=== PATIENT | female | born 1985 | race Two or more races ===

== ENCOUNTER 2024-09-27 22:05 | Emergency (ER) | payer MEDICARE, MEDICAID, SELFPAY ==
[2024-09-27 22:06] VITALS: BMI 35.3
[2024-09-27 22:07] VITALS: BP 113/81; PULSE 100; RESP 19; TEMP 36.7; O2SAT 96
[2024-09-27 22:35] VITALS: PULSE 92; RESP 16; O2SAT 96
--- NOTE | 2024-09-27 22:57 | EDNOTE_ITS ---
ED Psych RME/HPI General Chief Complaint: Suicidal Stated Complaint: MENTAL EVAL Time Seen by Provider: 09/27/24 23:00 Arrival date/time: 09/27/24 22:05 RME / HPI RME / HPI Narrative: This section includes all my notes and documentations, including HPI, PE, and ED course. Roly Barfield MD HPI: 39 y/o female with Hx of PTSD, Schizophrenia, Depression, and Anxiety presents to ED BIBA from [facility] c/o hearing voices that are telling her to kill herself x 2 days. She also complains of pain to her forehead from banging her head after hearing the voices yesterday. Patient called Crisis Hotline which then contacted EMS. Per EMS, patient's plan was to take razors and cut her wrists and throat, which she admits to attempting in the past. Patient was placed on a hold by Crisis after an in-person psych evaluation at the [facility]. Denies visual hallucinations or homicidal ideation. No other complaints. ROS: All negative except as documented in HPI. Physical Exam: General:? Alert and oriented.? Eyes:? Conjunctivae and lids clear.? EOMI.? PERRL. ENT:? No nasal congestion.? Neck:? Supple.? Heart:? RRR.? Lungs:? No respiratory distress.? Good air movement.? No rhonchi, wheezing, rales.?? Abdomen:? Soft and nontender.? Skin:? Warm and dry.?? Neuro:? Alert and oriented X 3.? Cranial Nerves II-XII grossly intact.? No peripheral motor deficits. Musculoskeletal:? All major joints and bones are not tender with no limited ROM.? I reviewed EMS and [facility] notes. I reviewed all diagnostic test results: My review of the Head CT report is NAD. My interpretation of the shoulder x-ray is no acute fracture. Blood tests unremarkable. UA showed positive leukocyte Estrace, 28 RBC, 32 WBC. At this point, diagnoses include: Suicidal ideation, auditory hallucinations, and UTI. Treatment here included: Macrobid Patient remained stable. At 6 AM on 09/28/2024, the care of the patient was transferred to Dr. Rodriguez. Roly Barfield MD Related Data Allergies Allergy/AdvReac Type Severity Reaction Status Date / Time No Known Allergies Allergy Verified 09/27/24 22:39 Review of Systems Review of Systems Systems Reviewed: All systems reviewed, normal except as documented Past Medical History Past Medical History PSYCHO/SOCIAL: Positive Psychiatric Problems, Schizophrenia, Depression, Anxiety and Post Traumatic Stress Disorder Social History SMOKING STATUS: Never smoker ED Exam Narrative Physical exam: Refer to HPI above Course Quality Measures none Orders Category Date Time Status CT head/brain wo con Stat Exams 09/27/24 23:07 Completed XR shoulder LT min 2V Stat Exams 09/28/24 00:12 Taken Acetaminophen Stat Lab 09/27/24 23:40 Completed Alcohol, Blood Medical Stat Lab 09/27/24 23:40 Completed CBC Stat Lab 09/27/24 23:40 Completed CMP [Comprehensive Metabolic Panel] Stat Lab 09/27/24 23:40 Completed Drug Screen,Urine Stat Lab 09/28/24 00:17 Completed Free T4 (Free Thyroxine) Stat Lab 09/27/24 23:40 Completed HCG Qualitative,Urine Stat Lab 09/28/24 00:17 Completed HCG,Qualitative Serum Stat Lab 09/27/24 23:40 Completed Magnesium Stat Lab 09/27/24 23:40 Completed Salicylate Stat Lab 09/27/24 23:40 Completed TSH [Thyroid Stimulating Hormone] Stat Lab 09/27/24 23:40 Completed UA, C/S IF [Urinalysis, C/S if Indicated] Stat Lab 09/28/24 00:17 Completed Urine Culture Stat Lab 09/28/24 00:17 Received Nitrofurantoin Macro [Macrobid] Med 09/28/24 01:11 Discontinued 100 mg PO X1 ONE Vital Signs Vital signs: Vital Signs Temperature 98.1 F 09/27/24 22:07 Pulse Rate 100 09/27/24 22:07 Respiratory Rate 19 09/27/24 22:07 Blood Pressure 113/81 09/27/24 22:07 Pulse Oximetry (%) 96 09/27/24 22:07 Oxygen Delivery Method Room Air 09/27/24 22:07 Psych MDM Narrative MDM Narrative:: Scribe Attestation: I, Peggy Gauthier, am scribing for and in the presence of Dr. Barfield. Provider Notation: Although this document has been carefully reviewed, there may still be some phonetic and other typographical errors.? These errors are purely grammatical due to imperfections in the software program and should not be construed in any way to? compromise the substance of the patient's medical care during this visit. 39 y/o female with Hx of PTSD, Schizophrenia, Depression, and Anxiety presents to ED JEROMYA from [facility] c/o hearing voices that are telling her to kill herself x 2 days. She also complains of pain to her forehead from banging her head after hearing the voices. Patient called Crisis Hotline which then contacted EMS. Per EMS, patient's plan was to take razors and cut her wrists, which she admits to attempting in the past. Patient was placed on a hold by Crisis after an in-person psych evaluation at the [facility]. Denies visual hallucinations or homicidal ideation. No other complaints. Patient data External records reviewed:: [facility] previous records (No prior ED records available for review.), EMS form and Custodial records Clinical information provided by:: patient and EMS Social determinants that could affect healthcare access:: mental health (Schizophrenia, Deppresion, Anxiety, PTSD) Patient has the following chronic illnesses:: Schizophrenia, Depression, Anxiety and Post Traumatic Stress Disorder How is presenting disease/condition affected by chronic disease/condition?: e xacerbated by Evaluation data The following diagnostics were reviewed and interpreted by me:: lab results and radiology exam(s) Lab and/or radiology exams considered but not ordered:: None Interpretation Summary: I reviewed all diagnostic test results: My review of the Head CT report is NAD. My interpretation of the shoulder x-ray is no acute fracture. Blood tests unremarkable. UA showed positive leukocyte Estrace, 28 RBC, 32 WBC. Medications / Prescriptions Medications or Prescriptions considered but not ordered:: None Medication administrations:: Medication Administration History Discontinued Medications Nitrofurantoin Macrocrystals (Nitrofurantoin Macro 100 Mg Capsule) 100 mg PO X1 ONE Stop: 09/28/24 01:12 Macrobid Consultations Consultation(s) initiated? (list below): No Diagnosis Psych Differential Diagnosis: acute psychosis, chronic schizophrenia, suicidal ideation, bipolar disorder, depression, drug-induced psychotic disorder and acute anxiety Most likely diagnosis given after review of the tests above:: Suicidal ideation, auditory hallucinations, and UTI. Admission Indicated Admission indicated?: not indicated Explain why admission is indicated or not indicated:: No psychiatric service available at this facility. Admission Request Was there a request for admission?: No Disposition Plan Disposition Plan: other (specify) (Signed out to Dr. Duval at 6 AM.) Discharge Plan Problem List Clinical Impression: Suicidal ideation, UTI (urinary tract infection), Auditory hallucinations Patient/Caregiver Discharge Instructions Print Language: Mongolian
--- NOTE | 2024-09-27 23:07 | XR_ITS ---
Examination: CT brain head without contrast. 2-D sagittal coronal reconstructions Date and time of exam:October 07, 2024 2548 hours CTDI: vol (mGy):47 DLP: (mGycm):878 INDICATIONS: Altered mental status today Technique: Multiple CT axial sections of the brain have been obtained, 5 mm slice thickness. Contrast has not been administered. 2-D sagittal, coronal reconstructions have been obtained Low dose protocols were performed. One or more of the following dose reduction techniques were used; automated exposure control, adjustment of the mA and/or KV according to patient size, use of iterative reconstruction technique. Findings: No significant ventricular enlargement. Intra-axial or extra-axial hemorrhage density is not seen. No mass effect or midline shift Basal cisterns are not remarkable. Fourth ventricle is midline. Cranial vault intact. Impression: Negative for acute hemorrhage, mass effect or midline shift Advise clinical correlation and follow up accordingly
[2024-09-28] VITALS (7 sets, daily range): BP systolic 98–120; BP diastolic 63–81; PULSE 99–109; RESP 16–18; TEMP 36.6–37.1; O2SAT 95–99
[2024-09-28 00:12] LABS: Basophils # (Auto) 0.1 Thou/mm3 (0.0-0.2); Basophils % (Auto) 1 % (0-2.5); Eosinophils # (Auto) 0.2 Thou/mm3 (0.0-0.5); Eosinophils % (Auto) 3 % (0-10); Hematocrit 33.2 % (36.0-46.0); Hemoglobin 11.2 g/dL (12.0-16.0); Immature Granulocytes % (Auto) 1 % (0-0); Immature Granulocytes Auto 0.03 Thou/mm3 (0.00-0.00); Lymphocytes # (Auto) 3.3 Thou/mm3 (1.0-4.8); Lymphocytes % (Auto) 52 % (10-50); Mean Corpuscular HGB Conc 33.7 g/dl (31.0-37.0); Mean Corpuscular Hemoglobin 28.9 pg (25.0-35.0); Mean Corpuscular Volume 86 fL (80-100); Monocytes # (Auto) 0.4 Thou/mm3 (0.0-0.8); Monocytes % (Auto) 6 % (0-12); Neutrophils # (Auto) 2.5 Thou/mm3 (1.8-7.7); Neutrophils % (Auto) 38 % (37-80); Nucleated Red Blood Cell % 0 /100 WBC (0); Platelet Count 196 Thou/mm3 (140-440); RDW Standard Deviation 42.6 fL (36.4-46.3); Red Blood Count 3.88 Miln/mm3 (4.00-5.20); White Blood Count 6.5 Thou/mm3 (3.6-11.0)
--- NOTE | 2024-09-28 00:12 | XR_ITS ---
Examination: Shoulder,left, 3 views Technique: Shoulder AP internal rotation, AP external rotation, Y view shoulder, 3 views Exam date and time :September 28, 2024 0022 hours INDICATIONS: Left shoulder pain 3 months. FINDINGS: Moderate narrowing glenohumeral joint No shoulder fracture or dislocation IMPRESSION: Moderate narrowing glenohumeral joint
[2024-09-28 00:36] LABS: Collection Type, Urine Clean Catch
[2024-09-28 00:40] LABS: HCG Qualitative,Urine Negative
[2024-09-28 00:42] LABS: Bilirubin,Urine Negative (Negative); Blood,Urine 3+ (Negative); Calcium Oxalate Crystals,Urine 2+; Clarity,Urine Turbid (Clear/Hazy); Color,Urine Amber (Lt Yel-Yel); Culture Indicated,Urine Yes; Glucose, Urine 2+ (Negative); Ketones,Urine 2+ (Negative); Leukocyte Esterase,Urine Positive (Negative); Nitrite,Urine Negative (Negative); Protein,Urine 2+ (Neg - Trace); RBC,Urine 28 /hpf (0-3); Specific Gravity,Urine 1.037 (1.001-1.035); Squamous Epithelial Cell,Urine 6 /hpf (0-5); WBC,Urine 32 /hpf (0-5)
[2024-09-28 00:52] LABS: Acetaminophen < 2.0 mcg/mL (10.0-20.0); Alanine Aminotransferase 20 U/L (10-49); Albumin, Serum 4.6 gm/dL (3.5-5.0); Albumin/Globulin Ratio 2.4 (1.2-2.2); Alcohol, Blood Medical < 3.0 mg/dL (0-10.0); Alkaline Phosphatase 55 U/L (46-116); Anion Gap 14 (7-16); BUN/Creatinine Ratio 13 Ratio (12-20); Bilirubin,Total 0.2 mg/dL (0.3-1.2); Blood Urea Nitrogen 8 mg/dL (9-23); Calcium 9.7 mg/dL (8.3-10.6); Calcium (Corrected) 9.7 mg/dL (8.5-10.1); Carbon Dioxide 20.3 mMol/L (20.0-31.0); Chloride 103 mMol/L (98-107); Creatinine (Component) 0.6 mg/dL (0.6-1.3); Estimated Creatinine Clearance 118.3 mL/min (>60); Globulin 1.9 gm/dL (2.3-3.5); Glucose 213 mg/dL (74-106); Magnesium 1.7 mg/dL (1.6-2.6); Osmolality,Calculated 278 (275-295); Potassium 4.2 mMol/L (3.4-5.1); Salicylate < 3.0 mg/dL; Sodium 137 mMol/L (136-145); Thyroid Stimulating Hormone 2.53 uIU/mL (0.55-4.78); Total Protein 6.5 gm/dL (5.7-8.2); eGFR > 60 See Note
[2024-09-28 00:57] LABS: HCG,Qualitative Serum Negative
[2024-09-28 02:30] LABS: Amphetamine/Methamp Scrn,U Negative (Negative); Barbiturate Screen,Urine Negative (Negative); Benzodiazepines Screen,Urine Positive (Negative); Benzoylecgonine Screen, Ur Negative (Negative); Fentanyl Screen,Urine Negative (Negative); Opiate Screen,Urine Negative (Negative); THC Screen,Urine Negative (Negative)
[2024-09-28] MEDS: NITROFURANTOIN MACRO 100 MG CAPSULE PO (06:02)
--- NOTE | 2024-09-28 06:33 | EDNOTE_ITS ---
Emergency Room Addendum Addendum Narrative: 0600: Care assumed from Dr. Barfield, the previous shift emergency physician. Past medical, surgical, social and family history reviewed. Vitals and home medications reviewed. I will assume the care of the patient at this time, pending mental health evaluation. Patient was already medically cleared by the healthcare network consultant doctor. Please refer to the emergency department record for history and examination from initial visit.? The patient was placed in ED observation care at 09/28/2024 at 0600 hours. The patient was placed in ED observation care pending mental health evaluation. Then, [facility] placed her on 5150 hold and now on observation care because of undifferentiated decompensated behavioral health evaluation, no behavioral health bed available. The patients past medical history, social history, and family history were reviewed. The plan of care will include serial examinations. While in ED observation the patient will have access to water, food, and personal hygiene. If the patient takes home medication(s), they will be con tinued in ED observation. Physical exam by me shows patient under no acute distress at this time. 1030: Mental [facility] placed the patient on a 5150 hold, pending placement. 1230: Patient has been accepted to [facility]. ETA is 2000 hours. 2000: EMS here to pick the patient and transport to [facility]. ED observation care ended at 09/28/2024 at 2000 hours.
--- NOTE | 2024-09-28 12:48 | PC.CC ---
Addendum entered by Kimberley Baxter 09/28/24 13:08: Manager Systems coordinated transportation via [facility]. ETA 2000. Addendum entered by Kimberley Baxter 09/28/24 13:07: ED Substation Operator Apprentice contacted [facility] Derik Dumont [phone] and conservator Juana Cárdenas and notified of acceptance by [facility]. Addendum entered by Kimberley Baxter 09/28/24 13:07: ED Substation Operator Apprentice received acceptance from [facility] [id number] Rivas, requested ETA 2100. Addendum entered by Kimberley Baxter 09/28/24 13:06: ED Substation Operator Apprentice prepared 5150 placement packet and sent it out to all accepting adult LPS facilities. Original Note: Pt Mary Orr is a 39-year-old female brought in to ED pn a 5150 DTS hold placed by [facility] Crisis Team. Manager Systems met with pt to complete mental health assessment. Pt presents disheveled and took several prompts to have Pt engaged and sit up on gurney. Pt have difficulty making direct eye contact as encounter progressed. Pt is noted to be alert and oriented to person, current place and year. Pt reports hx of mental health and reports being prescribed MH medications. Pt reports is compliant with medication. Pt endorses previous 5150 holds. Pt placed in ED 17. Pt reports living at [facility] [place] [address] - Director Derik Horton [phone]. Pt is conserved under [facility]- Weekend bonderite operator contact- Juana Tubbs [phone]. ED Substation Operator Apprentice encountered Pt for mental health evaluation. ED Substation Operator Apprentice explained limits of confidentiality and Pt stated he understood. ED Substation Operator Apprentice used the following interventions: empathy, unconditional positive regard, Socratic dialogue including clarifying and probing questions. Pt was receptive and was able to disclosed having a difficult with audio hallucinations and endorsesd intent/plan to kill self. ED Substation Operator Apprentice used C-SSRS to support process and assessed for SI/HI, self-harming behaviors, method, access to lethal means, plan/intent. Pt was responsive to mental health evaluation and disclosed plan/intent for SI/HI. Manager Systems consulted with microbiology supervisor SR and it was agreed to upheld 5150 DTS hold due to Pt continuing to endorse SI with plan/intent. Manager Systems will get in contact with [facility] and conservator.
--- NOTE | 2024-09-28 20:03 | PC.NURSE ---
[facility] here to transfer pt to [place]
--- NOTE | 2024-09-28 20:10 | PC.NURSE ---
ATTEMPTED TO CALL REPORT TO [facility] BUT NO NUMBER LEFT, WILL WAIT FOR CALL FROM FACILITY TO GIVE REPORT
== END 2024-09-28 20:13 ==
LOC: SERX 09-28 06:02
PROVIDERS: Emergency Provider Emergency Medicine
DX: Z04.6 Encounter for general psychiatric examination, requested by authority (principal); R45.851 Suicidal ideations; N39.0 Urinary tract infection, site not specified; F20.9 Schizophrenia, unspecified; M25.512 Pain in left shoulder; R41.82 Altered mental status, unspecified; F32.A Depression, unspecified; F41.9 Anxiety disorder, unspecified; F43.10 Post-traumatic stress disorder, unspecified; Z75.1 Person awaiting admission to adequate facility elsewhere
CPT/HCPCS: 36415; 70450; 73030; 80053; 80307; 80320; 80329; 81001; 81025; 83735; 84439; 84443; 84703; 85025; 87077; 87086; 87186; 96127; 99285; A9270; G0480

== ENCOUNTER 2024-10-19 03:30 | Emergency (ER) | payer MEDICARE, MEDICAID, SELFPAY ==
[2024-10-19] VITALS (9 sets, daily range): BP systolic 108–131; BP diastolic 71–85; PULSE 81–115; RESP 16–18; TEMP 36.4–36.8; O2SAT 95–98; BMI 35.7
[2024-10-19 05:00] LABS: HCG Qualitative,Urine Negative
--- NOTE | 2024-10-19 05:46 | EDNOTE_ITS ---
ED Psych RME/HPI General Chief Complaint: Psychiatric Symptoms Stated Complaint: MENTAL EVALUATION Time Seen by Provider: 10/19/24 03:44 Arrival date/time: 10/19/24 03:30 RME / HPI RME / HPI Narrative: DR FLORES MAIN ED EVALUATION: 39 y/o female with Hx of Seizures, Diabetes Mellitus Type 2, Schizophrenia, Depression, Anxiety and Post Traumatic Stress Disorder BIBA from [facility] in the [facility] in [place], [place]. [facility] has placed patient on a 5150 Hold after patient c/o hearing voices that are telling her to hit her head against the wall. Patient has a noted superficial injury to the forehead. Related Data Allergies Allergy/AdvReac Type Severity Reaction Status Date / Time adhesive tape Allergy Verified 10/19/24 03:53 fluoxetine (From Prozac) Allergy Verified 10/19/24 03:53 Milk Containing Products Allergy Verified 10/19/24 03:53 (Dairy) mushroom Allergy Verified 10/19/24 03:53 CHICKEN Allergy Uncoded 10/19/24 03:53 LODINE Allergy Uncoded 10/19/24 03:53 Review of Systems Review of Systems Systems Reviewed: All systems reviewed, normal except as documented Past Medical History Past Medical History NEUROLOGIC: Positive Neurological Disorders and Seizures ENDOCRINE: Positive Diabetes Mellitus Type 2 PSYCHO/SOCIAL: Positive Psychiatric Problems, Schizophrenia, Depression, Anxiety and Post Traumatic Stress Disorder Social History SMOKING STATUS: Current every day smoker ED Exam Narrative Physical exam: GENERAL APPEARANCE: alert and oriented x 4, well-developed, well-nourished, no acute distress VITALS: All vitals were reviewed and the pulse ox is 96% on room air, which is normal according to my interpretation. HEENT: Normocephalic, abrasion to the right forehead; pupils equal, round, reactive to light; EOMI; mucous membranes pink, moist; oropharynx clear NECK: Supple LUNGS: CTABL; no wheezes, no rales, no rhonchi HEART: Regular rate, regular rhythm; normal S1, S2; no murmurs ABDOMEN: non distended; normal BS; soft, no tenderness, no guarding, no rebound; no masses, no organomegaly, no hernia BACK: no CVA tenderness EXTREMITIES: atraumatic; no edema NEUROLOGIC: awake; alert and oriented x4; cranial nerves II-XII grossly intact; no focal sensory or motor deficits PSYCHIATRIC: appropriate mood and affect SKIN: warm, dry, normal color; no rashes Course Quality Measures none Orders Category Date Time Status Drug Screen,Urine Stat Lab 10/19/24 04:36 Received HCG Qualitative,Urine Stat Lab 10/19/24 04:36 Completed Vital Signs Vital signs: Vital Signs Temperature 97.9 F 10/19/24 03:39 Pulse Rate 89 10/19/24 03:39 Respiratory Rate 16 10/19/24 03:39 Blood Pressure 108/75 10/19/24 03:39 Pulse Oximetry (%) 96 10/19/24 03:39 Oxygen Delivery Method Room Air 10/19/24 03:39 Psych MDM Narrative MDM Narrative:: Scribe Attestation: Peggy Lawrence, am scribing for and in the presence of Dr. Flores. Provider Notation: Although this document has been carefully reviewed, there may still be some phonetic and other typographical errors.? These errors are purely grammatical due to imperfections in the software program and should not be construed in any way to? compromise the substance of the patient's medical care during this visit. Patient pending medical clearance and is on a 5150 Hold. Patient signed-out to oncoming ED physician at 6 AM. Patient data External records reviewed:: [facility] [place] previous records (Reviewed prior ED records from 09/28/24. Patient was seen for Auditory hallucinations.), EMS form and Custodial records Clinical information provided by:: patient and EMS Social determinants that could affect healthcare access:: mental health Patient has the following chronic illnesses:: Seizures, Diabetes Mellitus Type 2, Schizophrenia, Depression, Anxiety and Post Traumatic Stress Disorder How is presenting disease/condition affected by chronic disease/condition?: exacerbated by Evaluation data The following diagnostics were reviewed and interpreted by me:: lab results Lab and/or radiology exams considered but not ordered:: None Interpretation Summary: Urine HCG Qual: Negative. Pending toxicology report. Medications / Prescriptions Medications or Prescriptions considered but not ordered:: None Medication administrations:: See above Consultations Consultation(s) initiated? (list below): No Diagnosis Psych Differential Diagnosis: acute psychosis, chronic schizophrenia, suicidal ideation, bipolar disorder, depression, drug-induced psychotic disorder and acute anxiety Most likely diagnosis given after review of the tests above:: Intentional self harm. Admission Indicated Admission indicated?: not indicated Explain why admission is indicated or not indicated:: Pending toxicology report for medical clearance. Patient on 5150 Hold. Admission Request Was there a request for admission?: No Disposition Plan Disposition Plan: other (specify) (Signed-out to oncoming ED physician at 6 AM.) Discharge Plan Prescriptions/Referrals Referrals: No Primary/Family,Physician [Primary Care Provider] - In 1 week Problem List Clinical Impression: Intentional self-harm Patient/Caregiver Discharge Instructions Print Language: Spanish
[2024-10-19 05:49] LABS: Amphetamine/Methamp Scrn,U Negative (Negative); Barbiturate Screen,Urine Negative (Negative); Benzodiazepines Screen,Urine Negative (Negative); Benzoylecgonine Screen, Ur Negative (Negative); Fentanyl Screen,Urine Negative (Negative); Opiate Screen,Urine Negative (Negative); THC Screen,Urine Negative (Negative)
--- NOTE | 2024-10-19 07:03 | PC.CC ---
Patient is a 39 year-old female who presents to the hospital on a 5150-Hold by [facility] Mobile Crisis [facility], Lizzette Garrett. Patient is on a 5150-hold for Danger to Self. Patient is conversed by [facility], Conservator is Caio Esquivel . ASW attempted to make telephone contact to obtain conservator documents left voicemail. ASW attempted to make telephone contact with staff at [facility] where the patient resides no answer left voicemail.
--- NOTE | 2024-10-19 08:42 | PC.NURSE ---
Patient to er in room 16 with c/o SI, on 72hr hold, patient denies HI, cooperative, slightly anxious, answering questions and following commands appropriately. Patient states she hears voices that make her sad and tell her to hurt herself. Patient's plan for SI is to hit her head against the wall. Patient states she did hit her head against the wall before coming to the ER. Reddness noted to right anterior forehead, patient denies pain, skin is cool dry and warm. Patient awaiting lab draw for medical clearance, S/S aware of patient status and will evaluate patient once medical clearance is obtained, patient made aware of plan of care and verbalizes understanding. Patient has 1:[address] for her safety. Patient has no other needs at this time.
[2024-10-19 09:09] LABS: Basophils # (Auto) 0.1 Thou/mm3 (0.0-0.2); Basophils % (Auto) 1 % (0-2.5); Eosinophils # (Auto) 0.2 Thou/mm3 (0.0-0.5); Eosinophils % (Auto) 3 % (0-10); Hematocrit 34.3 % (36.0-46.0); Hemoglobin 11.5 g/dL (12.0-16.0); Immature Granulocytes % (Auto) 1 % (0-0); Immature Granulocytes Auto 0.04 Thou/mm3 (0.00-0.00); Lymphocytes # (Auto) 3.7 Thou/mm3 (1.0-4.8); Lymphocytes % (Auto) 48 % (10-50); Mean Corpuscular HGB Conc 33.5 g/dl (31.0-37.0); Mean Corpuscular Hemoglobin 28.6 pg (25.0-35.0); Mean Corpuscular Volume 85 fL (80-100); Monocytes # (Auto) 0.5 Thou/mm3 (0.0-0.8); Monocytes % (Auto) 6 % (0-12); Neutrophils # (Auto) 3.1 Thou/mm3 (1.8-7.7); Neutrophils % (Auto) 41 % (37-80); Nucleated Red Blood Cell % 0 /100 WBC (0); Platelet Count 344 Thou/mm3 (140-440); RDW Standard Deviation 43.6 fL (36.4-46.3); Red Blood Count 4.02 Miln/mm3 (4.00-5.20); White Blood Count 7.6 Thou/mm3 (3.6-11.0)
[2024-10-19 09:33] LABS: Anion Gap 7 (7-16); BUN/Creatinine Ratio 9 Ratio (12-20); Blood Urea Nitrogen 7 mg/dL (9-23); Calcium 9.1 mg/dL (8.3-10.6); Carbon Dioxide 25.8 mMol/L (20.0-31.0); Chloride 108 mMol/L (98-107); Creatinine (Component) 0.8 mg/dL (0.6-1.3); Estimated Creatinine Clearance 89.3 mL/min (>60); Glucose 110 mg/dL (74-106); Osmolality,Calculated 280 (275-295); Potassium 3.9 mMol/L (3.4-5.1); Sodium 141 mMol/L (136-145); eGFR > 60 See Note
--- NOTE | 2024-10-19 09:54 | PC.NURSE ---
Spoke with nurse at [facility] gave her update on patients status, they will evualte patients chart once it is sent by S/S worker.
--- NOTE | 2024-10-19 09:57 | PC.CC ---
CEDWDacia received a call from Dexter Garay from [facility] Conservators office who reports they are aware that their patient is here at the [facility] on a 5150-hold. Dexter reports that he will be making contact with [facility] Stabilization unit to if they are able to place the patient at their facility. Raymond with [facility] triage unit called and was made aware by Dexter that the patient needs placement and is requesting a packet be sent to them for possible placement. ASW is still waiting to receive a copy of the Conservator documents.
--- NOTE | 2024-10-19 10:00 | PC.NURSE ---
Patient provided with sandwich and cranberry juice.
--- NOTE | 2024-10-19 10:17 | PD.EDADDENDU ---
Emergency Room Addendum Addendum Narrative: 0600: Care assumed from Dr. Acosta, the previous shift emergency physician. Past medical, surgical, social and family history reviewed. Vitals and home medications reviewed. I will assume the care of the patient at this time pending labs and medical clearance for mental health evaluation. Please refer to the emergency department record for history and examination from initial visit.?The following addendum documentation note is intended to reflect any pending information, findings, or radiology results not included in the patient?s initial chart. Patient has been medically cleared for mental health evaluation. Patient has been accepted to [facility] and ETA p/u 1800.
--- NOTE | 2024-10-19 10:22 | PC.CC ---
Patient is a 39 year-old female who presents to the hospital on a 5150-hold by [facility] Mobile Occupational Therapy Aide, Lizzette Garrett for Danger to Self. It was reported that patient was having suicidal ideations with plan and intention to bang her head. Patient reports she was having command auditory hallucinations telling her to end her life. It was reported by staff at [facility] at the [facility] that patient is conserved by [facility]. ASW, Dacia made face to face contact with patient introduced self, role, and reason for visit. Patient presents as alert and oriented to self, location, and situation. ASW disclosed limits of confidentiality as well. Patient made appropriate eye contact. Patient?s mood appeared to be depressed with a flat affect and disinhibited. Patient?s thought process was linear and organized. No signs of delusions, paranoid or V/h. Patient reports that last night she began to have command auditory hallucinations to tell kill herself by banging her head. Patient reports she did bang her head. Patient reports that the voices will not stop. Patient reports she does not feel safe returning back home as she is still endorsing auditory hallucinations. At the time of encounter patient reports suicidal ideations with plan and intention. Patient is having auditory hallucinations. Patient denied homicidal ideations and visual hallucinations. Patient reports she has a diagnosis of Generalized Anxiety, Major Depressive Disorder, and Schizophrenia. Patient reports that she is medication compliant. Patient is able to ambulate independently and complete her own ADLs. Patient scored High-Risk on the [place] Screening. Dexter Garay made telephone contact with this commercial lines underwriter to inform that the patient is conserved by [facility]. Upon clinical consultation with [facility], Pati De Jesus patient?s 5150-hold will be upheld. Patient continues to have suicidal ideations with plan and intention. ASW to send referral to [facility] Facilities for placement as well as [facility] is assisting in attempting to place patient. Patient was provided with patient?s rights handbook. ASW provided update to discharge patient to LPS Facility to Dr. Yates, florist supplies salesperson Alicia, and bedside HERBIE Zurita. ASW to send referral via [facility] to LPS Facilities.
--- NOTE | 2024-10-19 10:51 | PC.CC ---
[facility] with [facility] reports they will be accepting patient. Accepting information will be provided shortly. ASWDacia called conservator Dexter Garay with [facility] to inform him that [facility] is able to accept patient to [facility]. He requested that this content writer make contact with home lighting adviser Derik Horton so patient's medication can be dropped off prior to patient leaving. ASW made telephone contact with Derik to inform him that Dexter is requesting for medications to be dropped off. Derik reports he will be coordinating with his staff so patient's medications are dropped off.
--- NOTE | 2024-10-19 13:20 | PC.CC ---
ASWDacia received telephone contact from [facility] to provide accepting information. Patient has been accepted by Dr. Spivey, Unit B. ASW provided discharge plan to Dr. Yates, dowel setting machine operator Hayley, and bedside RN Yudith. ASW was informed by HERBIE Zurita that patient's medication was delivered by [facility] staff. ASW to arrange transportation with [facility].
--- NOTE | 2024-10-19 14:46 | PC.NURSE ---
Patient lying in gurney queitly no distress noted, 1:[address], Patient provided with sandwich, sugar free pudding and iced tea.
--- NOTE | 2024-10-19 18:49 | PC.LAC ---
Patient calm and cooperative, awaiting transport to [facility], patient has needs at this time.
--- NOTE | 2024-10-19 19:06 | PC.NURSE ---
placed as a 1:1 sitter with patient. Pt calm and cooperative. Vitals obtained, awaiting ems arrival.
== END 2024-10-19 20:29 | disposition short-term general hospital (02) ==
PROVIDERS: Emergency Medicine; Emergency Provider Emergency Medicine
DX: S00.80XA Unspecified superficial injury of other part of head, initial encounter (principal); X83.8XXA Intentional self-harm by other specified means, initial encounter; F20.9 Schizophrenia, unspecified; E11.9 Type 2 diabetes mellitus without complications; F41.9 Anxiety disorder, unspecified; F32.A Depression, unspecified
CPT/HCPCS: 36415; 80048; 80307; 81025; 85025; 96127; 99285